=== PATIENT | female | born 1945 | race Caucasian/White ===

== ENCOUNTER → 2020-06-11 14:19 | Outpatient (BNVA) | payer MEDICARE, SELFPAY | PROVIDERS: PCP Family Medicine; Visit Provider Hospitalist | DX: Z13.89 Encounter for screening for other disorder (principal) | CPT/HCPCS: Q3014 ==

== ENCOUNTER → 2021-06-14 13:59 | Outpatient (BNVA) | payer MEDICARE, SELFPAY | PROVIDERS: PCP Family Medicine; Visit Provider Hospitalist | DX: G47.33 Obstructive sleep apnea (adult) (pediatric) (principal); J45.909 Unspecified asthma, uncomplicated | CPT/HCPCS: Q3014 ==

== ENCOUNTER 2021-08-23 12:59 | Outpatient (REF) | payer MEDICARE, SELFPAY ==
--- NOTE | 2021-08-23 14:07 | PFT_ITS ---
INDICATION: Dyspnea. SPIROMETRY: FEV1 to FVC 62% with an FEV1 of 1.88 L, which is 82% predicted; an FVC of 3 L, which is 99% predicted. No significant response to bronchodilators noted. Maximum voluntary ventilation 96% predicted. LUNG VOLUMES: Total lung capacity 91% predicted. DIFFUSION CAPACITY: DLCO 59% predicted. Flow volume loop appears to have a concavity in the expiratory limb consistent with obstructive physiology. COMPARISONS: Actually PFTs in 2019. INTERPRETATION: There is an obstructive ventilatory defect consistent with mild COPD. No significant response to bronchodilators noted and normal maximum voluntary ventilation. Lung volumes are within normal limits and the patient does have a moderate diffusion impairment likely secondary to emphysema and all the parenchymal lung conditions should be considered. When compared to 2019, there was a trend improvement in the FVC, trend improvement of the FEV1, trend improvement of total lung capacity, and no significant change in the diffusion capacity. Clinical correlation warranted. MD AHMET Devine/DONALD / [id number]
== END 2021-08-23 13:00 | disposition home or self-care (01) ==
LOC: HO.RESP 12:59
PROVIDERS: PCP Family Medicine; Visit Provider Hospitalist
DX: J45.909 Unspecified asthma, uncomplicated (principal); R06.00 Dyspnea, unspecified; G47.33 Obstructive sleep apnea (adult) (pediatric)
CPT/HCPCS: 94060; 94727; 94729; 99212

== ENCOUNTER 2023-06-08 13:23 | Outpatient (AMB) | payer MEDICARE, SELFPAY ==
--- NOTE | 2023-06-08 13:29 | A.OFFVIS_ITS ---
Intake Vital Signs 06/08/23 13:30 Height 5 ft 6 in Weight 142 lb BMI 22.9 BP 126/60 Blood Pressure Location Rt brachial Position Sitting Pulse 65 Pulse Source Pulse Oximeter Pulse Oximetry (%) 96 Oxygen Delivery Method Room Air Intake Visit Reasons: dyspnea Customer Professional Required: No Allergies Opoids Allergy (Severe, Uncoded 06/08/23 13:32) Confusion SSRI Allergy (Severe, Uncoded 06/08/23 13:32) Confusion HPI HPI Comments History of Present Illness Details The patient is a 77-year-old woman with known allergic asthma in addition to obstructive sleep apnea. She does use CPAP. The CPAP therapy has been affective and beneficial. She does use a CPAP for more than 4 hours. Recently was she was vacationing so more in the [facility] the patient developed issues with her CPAP. During the same time she had difficulty with her breathing increasing shortness of breath. She did start to QVAR. She also complained of chest discomfort. She did have a cardiac evaluation including an echocardiogram demonstrating grade 1 diastolic dysfunction and had a stress test that was unrevealing. Currently she is off the QVAR and she is feeling better. At this time her insurance is not covering her QVAR any longer. She is wondering what she should take. She also has issues tolerating beta agonist due to side effects. She does not have a short-acting bronchodilator this time. Her [employer] supervisor did send her Atrovent HFA but it was significantly expensive and she was not able to get it. At this point she is okay without one. She does follow her peak flows and will call me if they worsen. She did have pulmonary function studies demonstrating mild to moderate COPD. She has tried multiple inhalers in the past without any significant improvement. She has not use Bevespi. Therefore give her a coupon for to try and she can start that slowly. 06/14/2021 the patient has a telephone visit today. Overall the patient continues to stay at home being cared for with the pandemic. She continues to have some daytime drowsiness. She has been using her inhaler but she has not noticed any significant improvement in her respiratory status. She was supposed to have pulmonary function studies but we will postpone in view of the pandemic. will plan to arrange for them sometime in . She also had been having issues with PAP therapy. She was placed a new settings any resulting in worsening central sleep apnea. Likely has a component of complex sleep apnea. Therefore she was placed on CPAP of 7 cm improving her obstructive sleep apnea and minimizing the risk of central apneas. Seems to be doing much better on the current settings. She has been followed closely by [facility] sleep. Otherwise she is without any other complaints will have her come back when she is able to safely have her pulmonary function studies and have a proper examination in the office. 08/23/2021 the patient is here for pulmon linda follow-up visit. Overall she is feeling a lot better. She has been exercising regularly in using her medications as prescribed. Denies any significant shortness of breath. We did review her pulmonary function studies which were reassuring with compared to 2019. She still has a mild obstructive ventilatory defect consistent with COPD but overall her numbers are improved when compared to 2019. the improvement is minimal but it is still reassuring. The 1 thing is that she still has a moderate diffusion impairment that although has not changed it is out of proportion to her underlying obstructive physiology. Therefore she should get a chest x-ray at least to have baseline. The patient has not required any rescue therapy. In the meantime she continues on the PAP therapy. The PAP therapy continues to be affecting beneficial. She did recently get a new APAP rest med AirSense 11 from her sleep specialist and we will start area. She is tolerating therapy well size sleep more than 4 hours a night. At this point will continue with current respiratory therapy and follow-up in a year's time. If the patient has any issues prior to that she is to call for an evaluation. 06/08/2023 the patient is here for a gilberto duenas follow-up visit. Overall she is doing fairly well. She continues on the Flovent. Although, now is not being covered so she needs a replacement. The patient continues to have a rescue inhaler although she does not require. Her last PFTs do demonstrate mild obstruction consistent with mild COPD. Her major complaint right now is nasal congestion postnasal drip. She has been using fluticasone with minimal effect. The patient does complain of a postnasal drip and a cough. [id number] severity. She is already on Singulair and also has been on antihistamines. Will go ahead and add Astelin nasal spray. We had tried Atrovent in the past and that was not helpful. [facility] Medical History (Updated 06/08/23 @ 13:39 by Hayden Solorzano MD) Chronic allergic rhinitis Asthma-COPD overlap syndrome DEANDRE (obstructive sleep apnea) Asthma Social History (Updated 06/14/21 @ 14:02 by KRISTA Ferguson) Patient Tobacco Use Status: Former Tobacco user Tobacco use type: Cigarette Years Smoked: 10 years Review of Systems Const Denies night sweats ENT Denies change in voice, Denies lip swelling, Denies mouth pain, Reports nasal co ngestion, Reports nasal discharge, Reports post nasal drip and Denies tongue swelling Card Denies chest pain Resp Reports cough GI Denies abdominal pain Musc Denies no additional complaints Neuro Denies Neuro-related abnormal movements Psych Denies no additional complaints Toi/Lymph Denies easy bleeding and Denies lymphadenopathy Aller/Immun Denies lip swelling and Denies tongue swelling Physical Exam Vital Signs: Last Vital Signs Pulse 65 06/08/23 13:30 BP 126/60 06/08/23 13:30 Pulse Ox 96 06/08/23 13:30 Oxygen Delivery Method Room Air 06/08/23 13:30 BMI result Body Mass Index 22.9 Const General: alert Orientation/consciousness: patient oriented x3 HEENT General nose exam: Abnormal mucous membranes and turbinates present boggy Neck Neck: Yes normal visual inspection, Yes full ROM and Yes no lymphadenopathy Chest Chest palpation & inspection: normal inspection of the chest Resp Effort & Inspection: normal respiratory effort and able to speak in complete sentences Auscultation: clear to auscultation bilaterally Cardio Rate: regular rate Rhythm: regular rhythm Heart sounds: S1 normal heart sound present and S2 normal heart sound present GI Palpation (GI): Soft to palpation and nontender Auscultation: normal bowel sounds Skin General skin exam: rashes and/or lesions noted Neuro General: patient oriented x3 Assessment & Plan Assessment & Plan (1) Asthma: Code(s): J45.909 - Unspecified asthma, uncomplicated Qualifiers: Asthma complication type: uncomplicated Asthma persistence: persistent Asthma severity: moderate Qualified Code(s): J45.40 - Moderate persistent asthma, uncomplicated (2) DEANDRE (obstructive sleep apnea): Code(s): G47.33 - Obstructive sleep apnea (adult) (pediatric) (3) Asthma-COPD overlap syndrome: Code(s): J44.9 - Chronic obstructive pulmonary disease, unspecified (4) Chronic allergic rhinitis: Code(s): J30.9 - Allergic rhinitis, unspecified Plan short-acting beta agonist as needed stop Flovent start Alvesco start Astelin nasal spray continue Fluticasone nasal spray continue PAP therapy ( Dr. Asif) follow-up in 1 year Medications: New azelastine administer into each nostril 2 sprays intranasal BID 30 days 30 mL 6RF ciclesonide 160 mcg/actuation (Alvesco) 1 puff inhalation BID 6.1 grams 11RF Coding Level of Care Code Est Pt Level 4 (08361) Diagnoses Moderate persistent asthma without complication J45.40 Asthma complication type: uncomplicated Asthma persistence: persistent Asthma severity: moderate DEANDRE (obstructive sleep apnea) G47.33 Asthma-COPD overlap syndrome J44.9 Chronic allergic rhinitis J30.9 Time Spent (min) 17
[2023-06-08 13:30] VITALS: BP 126/60; PULSE 65; O2SAT 96; BMI 22.9
== END 2023-06-08 13:53 | disposition home or self-care (01) ==
PROVIDERS: PCP Family Medicine; Visit Provider Hospitalist
DX: J45.40 Moderate persistent asthma, uncomplicated (principal); G47.33 Obstructive sleep apnea (adult) (pediatric); J44.9 Chronic obstructive pulmonary disease, unspecified; J30.9 Allergic rhinitis, unspecified
CPT/HCPCS: 99214

== ENCOUNTER → 2023-06-08 13:23 | Outpatient (BNVA) | payer MEDICARE, SELFPAY | PROVIDERS: PCP Family Medicine; Visit Provider Hospitalist | DX: J45.40 Moderate persistent asthma, uncomplicated (principal); J30.9 Allergic rhinitis, unspecified; J44.9 Chronic obstructive pulmonary disease, unspecified; G47.33 Obstructive sleep apnea (adult) (pediatric) | CPT/HCPCS: 99212 ==

== ENCOUNTER 2024-06-06 13:57 | Outpatient (AMB) | payer MEDICARE, SELFPAY ==
--- NOTE | 2024-06-06 14:03 | MHC.OFFVIS ---
Vital Signs 06/06/24 14:03 Height 5 ft 6 in Weight 152 lb 1.903 oz BMI 24.5 BP 140/80 H Blood Pressure Location Rt brachial Position Sitting Pulse 64 Pulse Source Pulse Oximeter Pulse Oximetry (%) 97 Oxygen Delivery Method Room Air Intake Visit Reasons: Dyspnea Allergies Opoids Allergy (Severe, Uncoded 06/06/24 14:08) Confusion SSRI Allergy (Severe, Uncoded 06/06/24 14:08) Confusion HPI Comments Details: The patient is a 78-year-old woman with known allergic asthma in addition to obstructive sleep apnea. She does use CPAP. The CPAP therapy has been affective and beneficial. She does use a CPAP for more than 4 hours. Recently was she was vacationing so more in the [facility] the patient developed issues with her CPAP. During the same time she had difficulty with her breathing increasing shortness of breath. She did start to QVAR. She also complained of chest discomfort. She did have a cardiac evaluation including an echocardiogram demonstrating grade 1 diastolic dysfunction and had a stress test that was unrevealing. Currently she is off the QVAR and she is feeling better. At this time her insurance is not covering her QVAR any longer. She is wondering what she should take. She also has issues tolerating beta agonist due to side effects. She does not have a short-acting bronchodilator this time. Her graphic design professor did send her Atrovent HFA but it was significantly expensive and she was not able to get it. At this point she is okay without one. She does follow her peak flows and will call me if they worsen. She did have pulmonary function studies demonstrating mild to moderate COPD. She has tried multiple inhalers in the past without any significant improvement. She has not use Bevespi. Therefore give her a coupon for to try and she can start that slowly. 06/14/2021 the patient has a telephone visit today. Overall the patient continues to stay at home being cared for with the pandemic. She continues to have some daytime drowsiness. She has been using her inhaler but she has not noticed any significant improvement in her respiratory status. She was supposed to have pulmonary function studies but we will postpone in view of the pandemic. will plan to arrange for them sometime in springtime. She also had been having issues with PAP therapy. She was placed a new settings any resulting in worsening central sleep apnea. Likely has a component of complex sleep apnea. Therefore she was placed on CPAP of 7 cm improving her obstructive sleep apnea and minimizing the risk of central apneas. Seems to be doing much better on the current settings. She has been followed closely by [facility] sleep. Otherwise she is without any other complaints will have her come back when she is able to safely have her pulmonary function studies and have a proper examination in the office. 08/23/2021 the patient is here for pulmonary follow-up visit. Overall she is feeling a lot better. She has been exercising regularly in using her medications as prescribed. Denies any significant shortness of breath. We did review her pulmonary function studies which were reassuring with compared to 2019. She still has a mild obstructive ventilatory defect consistent with COPD but overall her numbers are improved when compared to 2019. the improvement is minimal but it is still reassuring. The 1 thing is that she still has a moderate diffusion impairment that although has not changed it is out of proportion to her underlying obstructive physiology. Therefore she should get a chest x-ray at least to have baseline. The patient has not required any rescue therapy. In the meantime she continues on the PAP therapy. The PAP therapy continues to be affecting beneficial. She did recently get a new APAP rest med AirSense 11 from her sleep specialist and we will start area. She is tolerating therapy well size sleep more than 4 hours a night. At this point will continue with current respiratory therapy and follow-up in a year's time. If the patient has any issues prior to that she is to call for an evaluation. 06/08/2023 the patient is here for a pulmonary follow-up visit. Overall she is doing fairly well. She continues on the Flovent. Although, now is not being covered so she needs a replacement. The patient continues to have a rescue inhaler although she does not require. Her last PFTs do demonstrate mild obstruction consistent with mild COPD. Her major complaint right now is nasal congestion postnasal drip. She has been using fluticasone with minimal effect. The patient does complain of a postnasal drip and a cough. [id number] severity. She is already on Singulair and also has been on antihistamines. Will go ahead and add Astelin nasal spray. We had tried Atrovent in the past and that was not helpful. 06/06/2024 the patient is here for a pulmonary follow-up visit. Overall she is doing well. She moved to senior housing she is doing much better. She did not with the stress in her life. Her respiratory symptoms are significantly better. The only time she has symptoms if after exposure to a respiratory illness. She has not had to use her inhalers recently. In the meantime she does continue to use CPAP in the CPAP continues to be affecting beneficial. She does use it for more than 4 hours a night. She does get her care from was there. We did look at her data briefly on her phone and looks like her AHI was elevated last night up to 8.5 events an hour. She states that she is having some central apneas. I am going to request access to review her data on air view. I will give her a call once I have that available. Otherwise the patient is doing well will plan to follow-up next year with PFTs. Last PFTs demonstrated a moderate diffusing impairment. [facility] Medical History (Updated 06/08/23 @ 13:39 by Hayden Solorzano MD) Chronic allergic rhinitis Asthma-COPD overlap syndrome DEANDRE (obstructive sleep apnea) Asthma Social History (Updated 06/14/21 @ 14:02 by KRISTA Ferguson) Patient Tobacco Use Status: Former Tobacco user Tobacco use type: Cigarette Years Smoked: 10 years Review of Systems Const Denies night sweats ENT Denies change in voice, Denies lip swelling, Denies mouth pain, Reports nasal congestion, Reports nasal discharge, Reports post nasal drip and Denies tongue swelling Card Denies chest pain Resp Reports cough GI Denies abdominal pain Musc Denies no additional complaints Neuro Denies Neuro-related abnormal movements Psych Denies no additional complaints Toi/Lymph Denies easy bleeding and Denies lymphadenopathy Aller/Immun Denies lip swelling and Denies tongue swelling Physical Exam Vital Signs: Last Vital Signs Pulse 64 06/06/24 14:03 BP 140/80 H 06/06/24 14:03 Pulse Ox 97 06/06/24 14:03 Oxygen Delivery Method Room Air 06/06/24 14:03 BMI result Body Mass Index 24.5 Const General: alert Orientation/consciousness: patient oriented x3 HEENT General nose exam: Abnormal mucous membranes and turbinates present boggy Neck Neck: Yes normal visual inspection, Yes full ROM and Yes no lymphadenopathy Chest Chest palpation & inspection: normal inspection of the chest Resp Effort & Inspection: normal respiratory effort and able to speak in complete sentences Auscultation: clear to auscultation bilaterally Cardio Rate: regular rate Rhythm: regular rhythm Heart sounds: S1 normal heart sound present and S2 normal heart sound present GI Palpation (GI): Soft to palpation and nontender Auscultation: normal bowel sounds Skin General skin exam: no rashes or lesions noted Neuro General: patient oriented x3 Extrem General: Yes no clubbing, cyanosis or edema Assessment & Plan Assessment & Plan (1) Asthma: Code(s): J45.909 - Unspecified asthma, uncomplicated Category: Medical Qualifiers: Asthma complication type: uncomplicated Asthma persistence: persistent Asthma severity: moderate Qualified Code(s): J45.40 - Moderate persistent asthma, uncomplicated (2) DEANDRE (obstructive sleep apnea): Code(s): G47.33 - Obstructive sleep apnea (adult) (pediatric) Category: Medical (3) Asthma-COPD overlap syndrome: Code(s): J44.9 - Chronic obstructive pulmonary disease, unspecified Category: Medical (4) Chronic allergic rhinitis: Code(s): J30.9 - Allergic rhinitis, unspecified Category: Medical Plan short-acting beta agonist as needed stop Alvesco Astelin nasal spray continue Fluticasone nasal spray continue PAP therapy ( Dr. Asif) Requesting [employer] access download follow-up in 1 year Coding Level of Care Code Est Pt Level 4 (16899) Diagnoses Moderate persistent asthma without complication J45.40 Asthma complication type: uncomplicated Asthma persistence: persistent Asthma severity: moderate DEANDRE (obstructive sleep apnea) G47.33 Asthma-COPD overlap syndrome J44.9 Chronic allergic rhinitis J30.9 Time Spent (min) 16
== END 2024-06-06 14:26 | disposition home or self-care (01) ==
PROVIDERS: PCP Family Medicine; Visit Provider Hospitalist
DX: J45.40 Moderate persistent asthma, uncomplicated (principal); G47.33 Obstructive sleep apnea (adult) (pediatric); J44.9 Chronic obstructive pulmonary disease, unspecified; J30.9 Allergic rhinitis, unspecified
CPT/HCPCS: 99214

== ENCOUNTER → 2024-06-06 13:57 | Outpatient (BNVA) | payer MEDICARE, SELFPAY | PROVIDERS: PCP Family Medicine; Visit Provider Hospitalist | DX: G47.33 Obstructive sleep apnea (adult) (pediatric) (principal); J45.40 Moderate persistent asthma, uncomplicated; J44.9 Chronic obstructive pulmonary disease, unspecified; J30.9 Allergic rhinitis, unspecified; Z99.89 Dependence on other enabling machines and devices | CPT/HCPCS: 99212 ==